=== PATIENT | male | born 1985 | race Caucasian/White ===

== ENCOUNTER 2021-06-28 12:56 | Emergency (ER) | payer OTHER ==
[~2021-06-28] VITALS: Ht 177.8 cm; Wt 104.3 kg
[2021-06-28] MEDS ORDERED: BACTRIM DS TAB1 EACH PO (13:08)
== END 2021-06-28 13:16 | disposition home or self-care (01) ==
LOC: ER 12:58
DX: L73.9 Follicular disorder, unspecified (principal)
CPT/HCPCS: 99282